=== PATIENT | male | born 1970 ===

== ENCOUNTER 2017-03-08 11:13 | Emergency (ER) | payer SELFPAY ==
[2017-03-08 11:21] VITALS: TEMP 97.6; O2SAT 99
[2017-03-08 11:22] VITALS: BMI 31.1
[2017-03-08 11:28] VITALS: RESP 18
--- NOTE | 2017-03-08 11:39 | ED PDOC ---
HPI: Hypertension/Hypotension Time Seen by Provider: 03/08/17 11:34 Chief Complaint (Nursing): High Blood Pressure Chief Complaint (Provider): High blood pressure History Per: Patient History/Exam Limitations: no limitations Onset/Duration Of Symptoms: Days Current Symptoms Are (Timing): Still Present Additional Complaint(s): Pt. was at home and has a new blood pressure machine. He checked his bp and it was elevated to 200 so he came to the ED. Denies any chest pain, dyspnea, weakness, dizziness, headaches, difficulty urinating. Pt. is pain free and symptom free. No abd pain, nausea, vomit. Was at [facility] yesterday for the same issue and dc. Past Medical History Reviewed: Nursing Documentation, Vital Signs Vital Signs: Last Vital Signs Temp 97.6 F 03/08/17 11:20 Pulse 75 03/08/17 11:20 Resp 18 03/08/17 11:27 BP 122/77 03/08/17 11:20 Pulse Ox 99 03/08/17 11:20 - Medical History PMH: Anxiety, CAD, Diabetes (type II), HTN, Hypercholesterolemia Denies: Atrial Fibrillation, Cardia Arrhythmia, Cardiac Aneurysm, CHF, Deep Vein Thrombosis, HIV, Hyperlipidemia, Kidney Stones, Mitral Valve Prolapse, Pericarditis, Peripheral Edema, Chronic Kidney Disease - Surgical History Surgical History: CABG, Tonsillectomy Denies: Pacemaker - Family History Family History: States: Unknown Family Hx, [place] - Living Arrangements Living Arrangements: With Family - Social History Current smoker - smoking cessation education provided: No Alcohol: None Drugs: Denies - Immunization History Hx Tetanus Toxoid Vaccination: Yes Hx Influenza Vaccination: No Hx Pneumococcal Vaccination: No - Home Medications Home Medications: Ambulatory Orders Medication Instructions Recorded Aspirin [Ecotrin] 81 mg PO DAILY 07/26/16 Clopidogrel [Plavix] 75 mg PO DAILY 07/26/16 Enalapril Maleate [Vasotec] 5 mg PO DAILY 07/26/16 Oxybutynin XL [Ditropan XL] 5 mg PO DAILY 07/26/16 Simvastatin [Zocor] 20 mg PO HS 07/26/16 - Allergies Allergies/Adverse Reactions: Allergies Allergy/AdvReac Type Severity Reaction Status Date / Time No Known Allergies Allergy Verified 03/06/17 09:18 Review of Systems ROS Statement: Except As Marked, All Systems Reviewed And Found Negative Physical Exam - Reviewed Nursing Documentation Reviewed: Yes Vital Signs Reviewed: Yes - Physical Exam Appears: Positive for: Well, Non-toxic, No Acute Distress Head Exam: Positive for: ATRAUMATIC, NORMAL INSPECTION, NORMOCEPHALIC Skin: Positive for: Normal Color, Warm, DRY Eye Exam: Positive for: EOMI, Normal appearance, PERRL ENT: Positive for: Normal ENT Inspection Neck: Positive for: Normal, Painless ROM Cardiovascular/Chest: Positive for: Regular Rate, Rhythm Respiratory: Positive for: CNT, Normal Breath Sounds Gastrointestinal/Abdominal: Positive for: Normal Exam, Bowel Sounds, Soft Back: Positive for: Normal Inspection. Negative for: L CVA Tenderness, R CVA Tenderness Extremity: Positive for: Normal ROM. 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 Negative for: Motor/Sensory Deficits - ECG ECG Rhythm: Positive for: Normal QRS, Normal ST Segment, Sinus Rhythm Interpretation Of Abn EKG: q wave inferior O2 Sat by Pulse Oximetry: 99 Pulse Ox Interpretation: Normal - Progress ED Course And Treament: 1150: Per chart, pt. at [facility] on February. Seen by ED and numbness per chart. Had work up with labs and urine. No findings. DC. Pt. on bp meds currently. Symptom free. BP mainted in appropriate range. AAOx3. Ambulating with no issues. Fu with pcp. Get a different bp machine. EKG from last visit same as today. Disposition - Clinical Impression Clinical Impression: Hypertension - Patient ED Disposition Is Patient to be Admitted: No Counseled Patient/Family Regarding: Diagnosis, Need For Followup - Disposition Referrals: [facility] [Outside] - 03/11/17 Disposition: Routine/Home Disposition Time: 11:58 Condition: STABLE Additional Instructions: Return if not better in 3 days. Get a different blood pressure machine. Instructions: Hypertension (ED)
[2017-03-08 12:03] VITALS: BP 118/79; PULSE 81
== END 2017-03-08 12:06 | disposition home or self-care (01) ==
LOC: H.ER 11:13
DX: I10 Essential (primary) hypertension (principal)

== ENCOUNTER 2017-06-07 11:35 | Emergency (ER) | payer MEDICAID ==
[2017-06-07 11:38] VITALS: BMI 30.3
[2017-06-07 11:40] VITALS: PULSE 78; RESP 19; TEMP 98.2; O2SAT 98
--- NOTE | 2017-06-07 12:23 | ED PDOC ---
Lower Extremity Pain/Injury Time Seen by Provider: 06/07/17 12:15 Chief Complaint (Nursing): Lower Extremity Problem/Injury Chief Complaint (Provider): Right leg pain History Per: Patient History/Exam Limitations: no limitations Onset/Duration Of Symptoms: Days (x 3) Current Symptoms Are (Timing): Still Present Additional Complaint(s): Romie is a 46 y/o male with a past medical history of hypertension and CAD, who presents to the ED complaining of ecchymosis and mild pain to the right inner thigh, ongoing for 3 days. Patient began taking Plavix recently and is concerned it may be related. Believes he may have bumped his leg at the site of bruising. Denies all other trauma. No knee or calf pain, or further medical complaints at this time. PMD: Dr. Santo Hdz Past Medical History Reviewed: Historical Data, Nursing Documentation, Vital Signs Vital Signs: Last Vital Signs Temp 98.2 F 06/07/17 11:38 Pulse 78 06/07/17 11:38 Resp 19 06/07/17 11:38 BP 145/96 H 06/07/17 11:38 Pulse Ox 98 06/07/17 11:38 - Medical History PMH: Anxiety, CAD, Diabetes (type II), HTN, Hypercholesterolemia Denies: Atrial Fibrillation, Cardia Arrhythmia, Cardiac Aneurysm, CHF, Deep Vein Thrombosis, HIV, Hyperlipidemia, Kidney Stones, Mitral Valve Prolapse, Pericarditis, Peripheral Edema, Chronic Kidney Disease - Surgical History Surgical History: CABG, Tonsillectomy Denies: Pacemaker - Family History Family History: States: [place] - Social History Ex-Smoker (has not smoked in the last 12 months): Yes Alcohol: Social Drugs: Cannabis, Cocaine - Immunization History Hx Tetanus Toxoid Vaccination: Yes Hx Influenza Vaccination: No Hx Pneumococcal Vaccination: No - Home Medications Home Medications: Ambulatory Orders Medication Instructions Recorded Aspirin [Ecotrin] 81 mg PO DAILY 07/26/16 Clopidogrel [Plavix] 75 mg PO DAILY 07/26/16 Enalapril Maleate [Vasotec] 5 mg PO DAILY 07/26/16 Oxybutynin XL [Ditropan XL] 5 mg PO DAILY 07/26/16 Simvastatin [Zocor] 20 mg PO HS 07/26/16 - Allergies Allergies/Adverse Reactions: Allergies Allergy/AdvReac Type Severity Reaction Status Date / Time No Known Allergies Allergy Verified 06/07/17 12:09 Review of Systems ROS Statement: Except As Marked, All Systems Reviewed And Found Negative Musculoskeletal: Positive for: Leg Pain (Right inner thigh with ecchymosis and minimal pain) Physical Exam - Reviewed Nursing Documentation Reviewed: Yes Vital Signs Reviewed: Yes - Physical Exam Appears: Positive for: Non-toxic, No Acute Distress Head Exam: Positive for: ATRAUMATIC, NORMAL INSPECTION, NORMOCEPHALIC Skin: Positive for: Normal Color, Warm, Dry Eye Exam: Positive for: EOMI, Normal appearance, PERRL Neck: Positive for: Normal, Painless ROM Respiratory: Negative for: Accessory Muscle Use, Respiratory Distress Extremity: Positive for: Normal ROM, Other (area of ecchymosis to the right inner thigh, non-tender) Neurologic/Psych: Positive for: Alert, Oriented - Laboratory Results Result Diagrams: 06/07/17 12:44 - ECG O2 Sat by Pulse Oximetry: 98 (RA) Pulse Ox Interpretation: Normal Medical Decision Making Medical Decision Making: Time: 12:20 Initial Plan: --CBC w/ differential --PTT --Prothrombin time --Reevaluation CBC and PTT/PT/INR normal. Scribe Attestation: Documented by Ilana Veloz, acting as a scribe for Shirley Deleon PA-C Provider Scribe Attestation: All medical record entries made by the Scribe were at my direction and personally dictated by me. I have reviewed the chart and agree that the record accurately reflects my personal performance of the history, physical exam, medical decision making, and the department course for this patient. I have also personally directed, reviewed, and agree with the discharge instructions and disposition. Disposition - Clinical Impression Clinical Impression: Superficial bruising of thigh Counseled Patient/Family Regarding: Diagnosis, Need For Followup - Disposition Disposition: Routine/Home Disposition Time: 14:18 Condition: GOOD Instructions: Contusion in Adults (ED)
[2017-06-07 13:28] LABS: BASO # 0.1 K/uL (0.0-0.2); BASO % 1.7 % (0.0-2.0); EOS # 0.1 K/uL (0.0-0.7); EOS % 1.5 % (0.0-4.0); HEMATOCRIT 43.4 % (35.0-51.0); LYMPH # 0.9 K/uL (1.0-4.3); LYMPH % 25.4 % (20.0-40.0); MEAN CELL VOLUME 88.7 fl (80.0-94.0); MEAN CORPUSCULAR HEMOGLOBIN 30.5 pg (27.0-31.0); MEAN CORPUSCULAR HGB CONC 34.4 g/dL (33.0-37.0); MEAN PLATELET VOLUME 8.7 fl (7.2-11.7); MONO # 0.5 K/uL (0.0-0.8); MONO % 13.5 % (0.0-10.0); NEUT % 57.9 % (50.0-75.0); NRBC % 0.1 % (0.0-0.0); RED CELL DISTRIBUTION WIDTH 13.2 % (11.5-14.5); WHITE BLOOD COUNT 3.5 K/uL (4.8-10.8)
[2017-06-07 13:51] LABS: PARTIAL THROMBOPLASTIN TIME 30.9 Seconds (25.6-37.1)
[2017-06-07 14:21] VITALS: BP 139/88
== END 2017-06-07 14:21 | disposition home or self-care (01) ==
LOC: H.ER 11:35
DX: S70.11XA Contusion of right thigh, initial encounter (principal); W22.8XXA Striking against or struck by other objects, initial encounter; Y92.89 Other specified places as the place of occurrence of the external cause; E11.9 Type 2 diabetes mellitus without complications; F41.9 Anxiety disorder, unspecified; I10 Essential (primary) hypertension; I25.10 Atherosclerotic heart disease of native coronary artery without angina pectoris; Z95.1 Presence of aortocoronary bypass graft; Z79.82 Long term (current) use of aspirin; Z79.01 Long term (current) use of anticoagulants

== ENCOUNTER 2017-11-17 18:18 | Emergency (ER) | payer SELFPAY ==
[2017-11-17 18:18] VITALS: BMI 30.3
[2017-11-17 18:24] VITALS: BP 135/87; PULSE 94; RESP 18; TEMP 98.2; O2SAT 100
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
== END 2017-11-17 18:54 | disposition home or self-care (01) ==
LOC: H.ER 18:18
DX: Z04.1 Encounter for examination and observation following transport accident (principal); E11.9 Type 2 diabetes mellitus without complications; E78.00 Pure hypercholesterolemia, unspecified; I10 Essential (primary) hypertension; I25.10 Atherosclerotic heart disease of native coronary artery without angina pectoris; Z87.891 Personal history of nicotine dependence

== ENCOUNTER 2018-05-24 18:41 | Emergency (ER) | payer SELFPAY ==
[2018-05-24 18:42] VITALS: BMI 30.3
[2018-05-24 19:27] VITALS: BP 122/87; PULSE 88; RESP 18; TEMP 98.2; O2SAT 98
--- NOTE | 2018-05-24 19:43 | ED PDOC ---
Upper Extremity Pain/Injury Time Seen by Provider: 05/24/18 19:29 Chief Complaint (Nursing): Upper Extremity Problem/Injury History/Exam Limitations: no limitations Onset/Duration Of Symptoms: Other (today) Current Symptoms Are (Timing): Still Present Quality: "Pain" Additional Complaint(s): 05/24/2018 9:30 47 year old male, whose past medical history includes [place], cardiac stents, hypertension, and hypercholesteremia, who presents to the ED complaining of bilateral arm pain. Patient states he went to therapy for pain a couple of days ago and received acupuncture, that caused pain. Patient states he has trouble carrying his daughters, however, he was able to carry them into ED (4 month old twins in car seat). Patient denies any chest pain, nausea, vomiting, SOB, abdominal pain, or any other complaints. Past Medical History Reviewed: Historical Data, Nursing Documentation, Vital Signs Vital Signs: Last Vital Signs Temp 98.2 F 05/24/18 19:23 Pulse 88 05/24/18 19:23 Resp 18 05/24/18 19:23 BP 122/87 05/24/18 19:23 Pulse Ox 98 05/24/18 19:23 - Medical History PMH: Anxiety, CAD, Diabetes (type II), HTN, Hypercholesterolemia Denies: Atrial Fibrillation, Cardia Arrhythmia, Cardiac Aneurysm, CHF, Deep Vein Thrombosis, HIV, Hyperlipidemia, Kidney Stones, Mitral Valve Prolapse, Pericarditis, Peripheral Edema, Chronic Kidney Disease - Surgical History Surgical History: CABG, Tonsillectomy Denies: Pacemaker - Family History Family History: States: [place] - Immunization History Hx Tetanus Toxoid Vaccination: Yes Hx Influenza Vaccination: No Hx Pneumococcal Vaccination: No - Home Medications Home Medications: Ambulatory Orders Medication Instructions Recorded Aspirin [Ecotrin] 81 mg PO DAILY 07/26/16 Clopidogrel [Plavix] 75 mg PO DAILY 07/26/16 Enalapril Maleate [Vasotec] 5 mg PO DAILY 07/26/16 Oxybutynin XL [Ditropan XL] 5 mg PO DAILY 07/26/16 Simvastatin [Zocor] 20 mg PO HS 07/26/16 traMADol [Ultram] 50 mg PO Q6H PRN #5 tab 05/24/18 - Allergies Allergies/Adverse Reactions: Allergies Allergy/AdvReac Type Severity Reaction Status Date / Time No Known Allergies Allergy Verified 06/07/17 12:09 Review of Systems ROS Statement: Except As Marked, All Systems Reviewed And Found Negative Constitutional: Negative for: Fever, Chills Cardiovascular: Negative for: Chest Pain Respiratory: Negative for: Shortness of Breath Gastrointestinal: Negative for: Nausea, Vomiting Musculoskeletal: Positive for: Arm Pain (bilateral arm pain) Skin: Negative for: Rash Physical Exam - Reviewed Nursing Documentation Reviewed: Yes Vital Signs Reviewed: Yes - Physical Exam Appears: Positive for: Well, Non-toxic, No Acute Distress Head Exam: Positive for: ATRAUMATIC, NORMAL INSPECTION, NORMOCEPHALIC Skin: Positive for: Normal Color, Warm. Negative for: Rash Eye Exam: Positive for: Normal appearance ENT: Positive for: Normal ENT Inspection Neck: Positive for: Normal Respiratory: Negative for: Accessory Muscle Use, Respiratory Distress Pulses-Radial (L): 2+ Pulses-Radial (R): 2+ Gastrointestinal/Abdominal: Positive for: Normal Exam Back: Positive for: Normal Inspection Extremity: Positive for: Normal ROM. Negative for: Tenderness, Capillary Refill , Deformity, Swelling Neurologic/Psych: Positive for: Alert, Oriented - ECG O2 Sat by Pulse Oximetry: 98 Medical Decision Making Medical Decision Makin05/24/2018 19:30 Impression: 47 year old male presents to the ED c/o bilateral arm pain. Plan: -- Ultram 2034 - Pt talking on the phone - No acute distress Progress Notes: Disposition - Clinical Impression Clinical Impression: Chronic pain - Patient ED Disposition Is Patient to be Admitted: No Counseled Patient/Family Regarding: Diagnosis, Need For Followup, Rx Given - Disposition Referrals: Javan Colunga MD [Staff Provider] - Disposition: Routine/Home Disposition Time: 20:33 Condition: STABLE Additional Instructions: Please follow-up with PMD. Prescriptions: traMADol [Ultram] 50 mg PO Q6H PRN #5 tab PRN Reason: Pain Instructions: Chronic Pain Forms: [employer] (Estonian)
== END 2018-05-24 20:40 | disposition home or self-care (01) ==
LOC: H.ER 18:41
DX: G89.29 Other chronic pain (principal); E11.9 Type 2 diabetes mellitus without complications; E78.00 Pure hypercholesterolemia, unspecified; I10 Essential (primary) hypertension; I25.10 Atherosclerotic heart disease of native coronary artery without angina pectoris; Z79.82 Long term (current) use of aspirin; Z95.1 Presence of aortocoronary bypass graft